=== PATIENT | female | born 1980 | race Caucasian/White ===

== ENCOUNTER 2017-03-02 13:04 | Day surgery (SDC) | payer OTHER ==
[~2017-03-02 13:04] MED LIST: IBUP600 PO; IBUP800 PO; LORTA5 PO; OXYC-360 PO; PRENTAB72 PO
[2017-03-02 13:49] VITALS: BP 96/59; PULSE 52; RESP 16; TEMP 97.6; O2SAT 96
[2017-03-02] MEDS ORDERED: LIDOCAINE HCL 1% 20 ML VIAL ONE (14:37)
[2017-03-02 14:52] VITALS: BP 113/66; PULSE 60; RESP 17; TEMP 97.9; O2SAT 99
--- NOTE | 2017-03-02 14:55 | RADRPT ---
EXAM DATE/TIME: 03/02/2017 13:41 [place] COMPARISON: No previous studies available for comparison. INDICATIONS : Left thyroid nodule. MEDICAL HISTORY : Choleystitis. Thyroid nodule. SURGICAL HISTORY : Cholecystectomy section. Laryngoscopy. ENCOUNTER: Initial ACUITY: 1 day PAIN SCORE: 1/10 LOCATION: Left neck ORGAN: Left thyroid lobe SPECIMENS: Six fine needle aspirate(s) submitted for pathologic evaluation. DEVICE: 22 gauge needle Post procedure scanning reveals no hematoma or other complication. The possibility does exist that the tissue obtained will be non-diagnostic. If the sample is non-sharron gnostic a repeat biopsy or surgical biopsy may need to be performed. TECHNIQUE: 1. Ultrasound guidance for needle biopsy. 2. Needle biopsy. The risks, benefits and alternatives to the procedure were explained and verbal and written consent w as obtained. The site was prepped in sterile fashion. Full sterile technique was used, including ca p, mask, sterile gloves and gown and a large sterile sheet. Hand hygiene and 2% chlorhexidine and/or betadine/alcohol prep was utilized per protocol for cutaneous antisepsis. The skin and subcutaneous tissues were infiltrated with local anesthetic solution. Sterile gel and sterile probe cover were u tilized for ultrasound guidance. With the patient on the ultrasound table, images were obtained. A needle was advanced into the identified target and the number of specimens as above obtained and nicholas bmitted for pathologic evaluation. The patient tolerated the procedure well and left the ultrasound suite in stable condition. CONCLUSION: Uncomplicated ultrasound guided needle biopsy. Johnny Ribeiro MD on March 02, 2017 at 14:53 Board Certified Radiologist. This report was verified electronically.
[2017-03-02 15:07] VITALS: BP 121/70; PULSE 54; RESP 18; O2SAT 99
== END 2017-03-02 15:15 | disposition home or self-care (01) ==
LOC: HRAD 13:04 → HRIP 13:11 → HRAD 15:15
PROVIDERS: ATTEND Otolaryngology Otolaryngology/Facial Plastic Surgery
DX: E04.1 Nontoxic single thyroid nodule (principal)
CPT/HCPCS: 10022; 76942; 88172; 88173